=== PATIENT | male | born 1995 | race Caucasian/White ===

== ENCOUNTER 2019-04-29 11:55 | Emergency (ER) | payer OTHER ==
[~2019-04-29] VITALS: Ht 177.8 cm; Wt 79.4 kg
== END 2019-04-29 15:27 | disposition home or self-care (01) ==
LOC: ER 11:55
DX: S50.02XA Contusion of left elbow, initial encounter (principal); M77.12 Lateral epicondylitis, left elbow; W18.39XA Other fall on same level, initial encounter; Y93.89 Activity, other specified; Y92.69 Other specified industrial and construction area as the place of occurrence of the external cause; Y99.8 Other external cause status